=== PATIENT | male | born 1960 | race Caucasian/White ===

== ENCOUNTER 2021-01-25 11:30 | Emergency (ER) | payer OTHER, SELFPAY ==
[2021-01-25 11:44] VITALS: BP 123/99; PULSE 162; RESP 18; TEMP 36.5; O2SAT 96
--- NOTE | 2021-01-25 12:09 | ED.URI ---
HPI - URI/Sore Throat General Chief Complaint: Upper Respiratory Infection Stated Complaint: Asthma Source: patient and RN notes reviewed Limitations: no limitations History of Present Illness HPI Narrative: The vaccinated patient, ex-smoker/nondrinker , presents with cough. Patient states he is on COPD meds, and has run out of them-he would like a refill including possibly new nebulizer med [girlfriend has access to one]. He has half week history of clear cough, mild SOB responsive to his previous meds. Patient states his last dose of steroids was about a year ago; not hospitalized frequently. No fever, earache; no loss of taste/smell, vomiting/diarrhea, CP. Vital signs remarkable for BP 123/99; repeat pulse 104. The patient has been informed that they may have pre-hypertension or Hypertension based on a BP reading in the department. I recommend that the patient call the primary care provider listed on their discharge instructions or a physician of their choice this week to arrange follow up for further evaluation of possible pre-hypertension or Hypertension Related Data Home Medications Medication Instructions Recorded Confirmed albuterol 90 mcg INHALATION PRN PRN 01/25/21 01/25/21 beclomethasone dipropionate 42 mcg INTRANASAL USEASDIRECTD 01/25/21 01/25/21 [Beconase] budesonide-formoterol [Symbicort] 1 puff INHALATION BID 01/25/21 01/25/21 Allergies Allergy/AdvReac Type Severity Reaction Status Date / Time NKDA Allergy Mild Other Uncoded 01/25/21 11:37 Review of Systems Review of Systems: General/Constitutional: No weight loss,fever Eyes: N0: Redness,discharge Ears/Nose/Throat: No: Epistaxis,ear discharge Respiratory: Denies: Hemoptysis Gastrointestinal: No Vomiting, Bleeding-rectal Skin: No Lumps, eruption Neurologic: No Focal Weakness,Sz Hematologic: Denies: Petechiae/Purpura Psychiatric: No: Suicida ideationl All Other Systems: Reviewed and Negative PMFSH Comments At time of signature, agree with nursing past medical, surgical, social and family history. There is no relevant family history pertinent to the presenting complaint Exam Narrative: General Appearance: Well appearing, No distress EYE: PERRLA, Conjunctiva clear Ears: External ear normal Nose: Normal nose Mouth/Throat: Normal appearing, Normal lips Neck: Supple Respiratory: Airway patent, No respiratory distress, increased AP diameter, decreased BS at bases, fine wheezing on expiration Cardiovascular: RRR Abdomen: Soft, Non-tender, Musculoskeletal: Full ROM Skin: Warm, Dry Neurological: A&O x3, CN II-X intact Psychiatric: Normal mood, Normal affect Course Vital Signs Vital signs: Vital Signs Temperature 97.7 F 01/25/21 11:44 Pulse Rate 162 H 01/25/21 11:44 Respiratory Rate 18 01/25/21 11:44 Blood Pressure 123/99 H 01/25/21 11:44 Pulse Oximetry 96 01/25/21 11:44 Temperature 97.7 F 01/25/21 11:44 Pulse Rate 162 H 01/25/21 11:44 Respiratory Rate 18 01/25/21 11:44 Blood Pressure 123/99 H 01/25/21 11:44 Pulse Oximetry 96 01/25/21 11:44 Discharge Plan Discharge Clinical Impression: COPD exacerbation Patient Disposition: Home, Self-Care Condition: Stable Instructions: COPD (Chronic Obstructive Pulmonary Disease) (ED) Prescriptions: New prednisone 20 mg tablet 60 mg PO DAILY Qty: 30 RF: 0 budesonide-formoterol [Symbicort] 160-4.5 mcg/actuation HFA aerosol inhaler 1 puff inhalation BID Qty: 10.2 RF: 2 cefuroxime axetil 500 mg tablet 500 mg PO Q12H Qty: 14 RF: 0 albuterol sulfate 2.5 mg /3 mL (0.083 %) solution for nebulization 2.5 mg inhalation Q3-4H PRN (Reason: bronchospasm) Qty: 15 RF: 4 No Action Beconase 42 mcg/actuation Aerosol 42 mcg INTRANASAL USEASDIRECTD RF: 0 albuterol 90 mcg/actuation Aerosol 90 mcg INHALATION PRN PRN (Reason: Shortness Of Breath) RF: 0 budesonide-formoterol [Symbicort] 160-4.5 mcg/actuation H
[2021-01-26 19:19] LABS: SARS-CoV-2 RNA PCR Negative
== END 2021-01-25 12:23 | disposition home or self-care (01) ==
PROVIDERS: Emergency Provider Emergency Medicine
DX: J44.1 Chronic obstructive pulmonary disease with (acute) exacerbation (principal); Z20.822 Contact with and (suspected) exposure to COVID-19
CPT/HCPCS: 99213; C9803; G0463; U0003; U0005

== ENCOUNTER 2021-03-17 17:00 | Emergency (ER) | payer OTHER, SELFPAY ==
--- NOTE | ~2021-03-17 | XR_ITS ---
EXAMINATION: XR chest 2V DATE: 03/17/2021 17:23 INDICATION: Wheezing and cough. TECHNIQUE: Frontal and lateral views of the chest were obtained. COMPARISON: None. FINDINGS: There is eventration of anterior right hemidiaphragm. No pneumonia, pleural effusion, or pn eumothorax. The heart size is normal. There is mild anterior wedging of 2 midthoracic vertebral eve s, likely chronic. IMPRESSION: 1. No acute cardiopulmonary disease. Reviewed, dictated and finalized at location A. DEVELOPER PROGRAMMER
[2021-03-17 17:03] VITALS: BP 158/99; PULSE 109; RESP 20; TEMP 36.9; O2SAT 97
--- NOTE | 2021-03-17 17:17 | ED.URI ---
HPI - URI/Sore Throat General Chief Complaint: Upper Respiratory Infection Stated Complaint: WANTS MEDICINE REFILL Source: patient Mode of arrival: ambulatory Limitations: no limitations History of Present Illness HPI Narrative: 60-year-old male presents to [facility] with complaints of shortness of breath, wheezing cough, runny nose and congestion for the past week. Patient has history of COPD and uses inhalers and nebulizers daily. Patient's last neb treatment was a few hours ago. Patient was seen here in late January 2021 and given 30 tablets of 20 mg prednisone, antibiotic and inhalers. Patient reports that he has yet to follow-up with the [facility] and not seeing pulmonology concerning his COPD. Patient is here today asking for refill on his prednisone. Patient is a ex-smoker. Patient denies fever, body aches or chills. MD elicited complaint: cough, rhinorrhea and nasal congestion Onset (ago): week(s) (1) Description of mucous: clear Exacerbating factors: nothing Relieving factors: nothing Related Data Home Medications Medication Instructions Recorded Confirmed albuterol 90 mcg INHALATION PRN PRN 01/25/21 01/25/21 beclomethasone dipropionate 42 mcg INTRANASAL USEASDIRECTD 01/25/21 01/25/21 [Beconase] budesonide-formoterol [Symbicort] 1 puff INHALATION BID 01/25/21 01/25/21 Allergies Allergy/AdvReac Type Severity Reaction Status Date / Time NKDA Allergy Mild Other Uncoded 01/25/21 11:37 Review of Systems Constitutional: Constitutional: Denies chills, Denies fatigue, Denies fever(s) and Denies weakness ENT: Denies dysphagia, Denies epistaxis and Denies sore throat Cardiovascular: Cardiovascular: Denies chest pain, Denies rapid heart rate and Denies slow heart rate Respiratory: Respiratory: Reports chest congestion, Reports cough, Reports dyspnea and Reports wheezing Gastrointestinal: Gastrointestinal: Denies abdominal pain, Denies diarrhea, Denies nausea and Denies vomiting Integumentary/Breasts: Skin/Breast: Denies rash PMFSH Past Medical History Medical History (Updated 03/17/21 @ 17:35 by Linda Turner APRN) COPD (chronic obstructive pulmonary disease) Social History Social History (Updated 03/17/21 @ 17:22 by Linda Turner APRN) Smoking status: Former smoker Comments At time of signature, I agree with nursing past medical, surgical, social and family history. There is no relevant family history pertinent to the presenting complaint. Exam Const: General: no acute distress and alert Nutritional Appearance: well nourished Orientation/consciousness: patient oriented x3 HENMT: Head: normal to inspection Ears: TM abnormal Mouth: Yes Normal oral and palatal mucosa present and Yes moist mucous membranes Throat: posterior oropharynx normal and uvula midline Neck: Neck: normal visual inspection Chest: Chest palpation & inspection: normal inspection of the chest Resp: Effort & Inspection: normal respiratory effort and not tachypneic Auscultation: wheezes expiratory wheezes and scattered wheezes Cardio: Rate: regular rate, not bradycardic and not tachycardic Rhythm: regular rhythm Skin: General skin exam: normal color, no jaundice and no pallor Rashes: no rashes Wounds: no wounds Neuro: General: patient oriented x3 and moves all extremities Psych: Appearance: grossly normal Mental Status: mental status grossly normal Affect: normal affect Attitude: cooperative Thought content: Yes Normal thought content present Course Course Level of Care: Express Care Visit Vital Signs Vital signs: Vital Signs Temperature 36.9 C 03/17/21 17:03 Pulse Rate 109 H 03/17/21 17:03 Respiratory Rate 20 03/17/21 17:03 Blood Pressure 158/99 H 03/17/21 17:03 Pulse Oximetry 97 03/17/21 17:03 Temperature 36.9 C 03/17/21 17:03 Pulse Rate 109 H 03/17/21 17:03 Respiratory Rate 20 03/17/21 17:03 Blood Pressure 158/99 H 03/17/21 17:03 Pulse Oximetry 97 03/17/21 17:03
== END 2021-03-17 17:46 | disposition home or self-care (01) ==
PROVIDERS: Emergency Provider Nurse Practitioner Family
DX: J44.9 Chronic obstructive pulmonary disease, unspecified (principal); Z87.891 Personal history of nicotine dependence
CPT/HCPCS: 71046; 87426; 99213; C9803; G0463

== ENCOUNTER 2023-03-31 17:23 | Observation (INO) | payer OTHER, SELFPAY ==
--- NOTE | ~2023-03-31 | XR_ITS ---
EXAMINATION: XR chest 2V DATE: 03/31/2023 18:02 INDICATION: Weakness. TECHNIQUE: Frontal and lateral views of the chest were obtained. COMPARISON: Chest 2 views 03/17/2021 FINDINGS: There is eventration of anterior right hemidiaphragm. No pneumonia, pleural effusion, or pn eumothorax. The heart size is normal. There is mild chronic height loss of multiple vertebral bodies. IMPRESSION: 1. No acute cardiopulmonary disease. Reviewed, dictated and finalized at location E. TAL FORENSICS EXAMINER
[2023-03-31 17:30] VITALS: BP 163/87; PULSE 98; RESP 20; TEMP 37.1; O2SAT 95
--- NOTE | 2023-03-31 17:35 | ECG_ITS ---
Measurements Intervals [place] Rate: 91 P: 84 ID: [id number] QRS: 68 QRSD: 100 T: 64 QT: 330 QTc: 408 Interpretive Statements SINUS RHYTHM RIGHT ATRIAL ENLARGEMENT [0.3mV P WAVE] BORDERLINE ECG NO PREVIOUS ECG AVAILABLE FOR COMPARISON Electronically Signed On 04-01-2023 12:25:53 MATE FISHING VESSEL by Raudel Martines M.D.
[2023-03-31 17:51] LABS: Basophils Percent Auto 0.6 % (0.2-1.2); Eosinophils Percent Auto 0.6 % (0-4.4); Hematocrit 38.2 % (42.0-52.0); Hemoglobin 12.9 g/dL (14.0-18.0); Lymphocytes Absolute Auto 1.02 K/mm3 (0.9-3.2); Lymphocytes Percent Auto 19.5 % (18.3-44.2); Mean Corpuscular HGB Conc 33.8 g/dl (32-36); Mean Corpuscular Hemoglobin 29.7 pg (26-34); Mean Platelet Volume 8.8 fl (7.4-10.4); Monocytes Absolute Auto 0.6 K/mm3 (0.1-0.6); Monocytes Percent Auto 10.5 % (2.6-8.5); Neutrophils Absolute Auto 3.6 K/mm3 (1.3-6.7); Neutrophils Percent Auto 68.8 % (45.5-73.1); Platelet Count Result 218 k/mm3 (150-375); Red Blood Count 4.34 M/mm3 (4.6-6.20); Red Cell Distribution Width 13.4 % (11.5-14.5); White Blood Count 5.2 K/mm3 (4.5-10.0)
[2023-03-31 18:00] LABS: Alanine Aminotransferase 19 U/L (6-50); Albumin Level 4.2 g/dL (3.5-5.1); Alkaline Phosphatase 101 U/L (38-126); Anion Gap 10 mmol/L (8-16); Aspartate Amino Transferase 28 U/L (17-59); Bilirubin,Total 0.4 mg/dL (0.2-1.3); Blood Urea Nitrogen 14 mg/dL (9-20); Carbon Dioxide 21 mmol/L (22-30); Chloride 91 mmol/L (98-107); Estimated CRCL calculation 78 ml/min; Estimated Glomerular Filt Rate > 60; Glucose 149 mg/dL (65-110); Sodium 122 mmol/L (137-145)
[2023-03-31 18:56] VITALS: BP 162/88; O2SAT 97
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
[2023-03-31 19:39] LABS: Influenza A QL RT-PCR Positive (Negative); Influenza B QL RT-PCR Negative (Negative); RSV RNA, RT-PCR Negative (Negative); SARS-CoV-2 RNA PCR Negative (Negative)
[2023-03-31 20:29] LABS: Appearance Urine Clear (Clear); Bacteria Urine None Seen /hpf; Bilirubin Urine Negative (Negative); Blood Urine 1+ (Negative); Color Urine Yellow (Yellow); Glucose Urine UA Negative (Negative); Ketones Urine Trace mg/dL (Negative); Leukocyte Esterase Ur Negative LEU/UL (Negative); Nitrate Urine Negative (Negative); Non Pathogenic Casts 0-2; Protein Urine Negative (Negative); Squamous Epithelial Cell Urine None seen /hpf (Few); Urobilinogen Urine 0.2 mg/dL (<2.0); WBC Urine 0-5 /hpf; pH Urine 6.5 (5.0-9.0)
[2023-03-31 20:29] LABS: Creatine Kinase 95 U/L (55-170); Troponin I < 0.012 ng/mL (0.000-0.034)
[2023-03-31] MEDS: SODIUM CHLORIDE 0.9% IV 1,000 ML 999 ML IV CONT ×2 (20:37→21:34)
[2023-03-31 20:38] LABS: Add Urine Microscopic? YES
[2023-03-31 20:43] LABS: Creatinine Urine 62.6 mg/dL
[2023-03-31 20:56] LABS: Sodium Urine Random 43 meq/L
--- NOTE | 2023-03-31 21:19 | PM.IMHP ---
H&P: HPI History of Present Illness Date/Time: 03/31/23 21:19 Chief Complaint: SOB Narrative: THIS IS A 62-YEAR-OLD MALE WITH PAST MEDICAL HISTORY SIGNIFICANT FOR COPD. PATIENT PRESENTS TO THE EMERGENCY ROOM DUE TO GENERALIZED MALAISE, FEVERS, CHILLS, BODY ACHES AND PAINS, POOR APPETITE HAD BEEN AT THE [facility] EARLIER TO OBTAIN REFILLS FOR HIS MEDICATIONS WAS DIAGNOSED WITH INFLUENZA COMES TO THE EMERGENCY ROOM DUE TO WORSENING OF SYMPTOMS EXAMINATION: XR chest 2V DATE: 03/31/2023 18:02 INDICATION: Weakness. TECHNIQUE: Frontal and lateral views of the chest were obtained. COMPARISON: Chest 2 views 03/17/2021 FINDINGS: There is eventration of anterior right hemidiaphragm. No pneumonia, pleural effusion, or pneumothorax. The heart size is normal. There is mild chronic height loss of multiple vertebral bodies. IMPRESSION: 1. No acute cardiopulmonary disease. Review of Systems Review of Systems: BODY ACHES AND PAINS, SHORTNESS OF BREATH Constitutional: Constitutional: Reports chills, Reports fatigue, Reports poor appetite and Reports weakness Respiratory: Respiratory: Reports cough and Reports dyspnea PMFSH Past Medical History Medical History (Updated 04/01/23 @ 02:29 by Jeremy Mckeon MD) COPD (chronic obstructive pulmonary disease) Family History Family History (Updated 03/31/23 @ 22:59 by Hayley Rogers RN) Father Anemia Alzheimer's dementia Social History Social History (Updated 03/17/21 @ 17:22 by Linda Turner APRN) Smoking status: Former smoker Alcohol intake: former Substance use: never Do You Feel Safe in your Home?: Yes Lack of Transportation: No Lack of Food: Never True Current Housing: I Have Housing Concerned About Future Housing: No Difficulty Paying Gas/Electric Bills: No Difficulty Paying for Meds: No Currently Unemployed: No Education: High School Diploma/GED Difficulty w/ Childcare or Family Care: No Spiritual care concerns: No Meds Home Medications and Allergies Home Medications Medication Instructions Recorded Confirmed Type albuterol sulfate 2.5 mg/3 mL 2.5 mg (3 mL) inhalation Q3-4H PRN 01/25/21 03/31/23 Rx (0.083 %) solution for nebulization bronchospasm #15 mL beclomethasone dipropionate 42 42 mcg intranasal USEASDIRECTD 01/25/21 03/31/23 History mcg/actuation nasal spray budesonide-formoterol HFA 160 1 puff inhalation BID 01/25/21 03/31/23 History mcg-4.5 mcg/actuation aerosol inhaler (Symbicort) aspirin 81 mg capsule 81 mg PO DAILY 03/31/23 03/31/23 History dextromethorphan-guaifenesin 10 10 ml PO Q4-6H PRN Cough 03/31/23 03/31/23 History mg-100 mg/5 mL oral liquid (Tusnel Diabetic) fluticasone 250 mcg-salmeterol 50 1 inh inhalation BID 03/31/23 03/31/23 History mcg/dose blistr powdr for inhalation fluticasone propionate 50 1 spray intranasal DAILY 03/31/23 03/31/23 History mcg/actuation nasal spray,suspension melatonin 3 mg tablet 3 mg PO HS PRN Insomnia 03/31/23 03/31/23 History sodium chloride 0.65 % nasal spray 1 spray intranasal Q4-6H PRN 03/31/23 03/31/23 History aerosol (Deep Sea Nasal) Congestion Allergies Allergy/AdvReac Type Severity Reaction Status Date / Time NKDA Allergy Mild Other Uncoded 03/31/23 23:13 Vital Signs Vital Signs - 24 hr 03/31/23 17:30 03/31/23 18:56 Temperature 98.7 F Pulse Rate 98 Respiratory Rate 20 Blood Pressure 163/87 H 162/88 H Pulse Oximetry 95 97 Oxygen Delivery Room Air Exam Narrative: PATIENT IS LAYING IN A STRETCHER Const: General: comfortable, no acute distress, well developed, alert, awake and average body habitus Nutritional Appearance: average body habitus Orientation/consciousness: patient oriented x3 HENMT: Head: normal to inspection, normocephalic and atraumatic Ears: hearing grossly normal bilaterally Face/Nose/Sinus: normal facial exam Face and sinus: normal facial exam Eyes: Ge
[2023-03-31 21:38] LABS: Magnesium 1.9 mg/dL (1.6-2.3)
[2023-03-31] MEDS: HYDROcodone/acetaminophen (*CRX) 5-325 MG TABLET 1 TAB PO (21:54)
[2023-03-31 22:05] VITALS: BP 152/87; PULSE 83; RESP 17; O2SAT 99
[2023-03-31 22:17] LABS: Anion Gap 6 mmol/L (8-16); Blood Urea Nitrogen 12 mg/dL (9-20); Calcium 7.3 mg/dL (8.4-10.2); Carbon Dioxide 24 mmol/L (22-30); Chloride 95 mmol/L (98-107); Creatine Kinase 98 U/L (55-170); Estimated CRCL calculation 88 ml/min; Estimated Glomerular Filt Rate > 60; Glucose 100 mg/dL (65-110); Potassium 3.7 mmol/L (3.4-5.0); Sodium 125 mmol/L (137-145)
[2023-03-31] MEDS: PHARMACIST COMMUNICATION ORDER 1 EACH XX (22:24)
[2023-03-31] MEDS: SODIUM CHLORIDE 3% 100 ML IV CONT (22:29)
--- NOTE | 2023-03-31 22:57 | ADMGEN ---
This patient, Rui Estrada, was admitted to Medical Room 349-01. Patient/family oriented to hospital policies and general routines including ID bracelet, bed and alarms, visiting hours, pain management, procedures, bathroom and other care routines, personal items, smoking policy, room service/diet, and visiting hours. Information on how to activate the Rapid Response Team has been discussed. Patient/Family are encouraged to report perceived risks to care and to ask questions if they do not understand what they are told or what they should do.
[2023-03-31 23:40] VITALS: BP 151/63; PULSE 71; RESP 18; TEMP 36.6; O2SAT 96
[2023-03-31 23:43] VITALS: BMI 21.1
[2023-04-01 00:42] LABS: Anion Gap 4 mmol/L (8-16); Blood Urea Nitrogen 10 mg/dL (9-20); Calcium 7.6 mg/dL (8.4-10.2); Carbon Dioxide 25 mmol/L (22-30); Chloride 99 mmol/L (98-107); Estimated CRCL calculation 92 ml/min; Estimated Glomerular Filt Rate > 60; Glucose 107 mg/dL (65-110); Potassium 4.1 mmol/L (3.4-5.0); Sodium 128 mmol/L (137-145)
[2023-04-01 06:00] VITALS: BP 130/89; PULSE 90; RESP 18; TEMP 37.2; O2SAT 95
[2023-04-01 07:51] VITALS: O2SAT 94
[2023-04-01] MEDS: FLUTICASONE/SALMETEROL 115-21 MCG INHALER 1 PUFF 2 PUFF INHALATION (07:51)
[2023-04-01] MEDS: ASPIRIN 81 MG ENTERIC TABLET PO (09:36)
[2023-04-01] MEDS: FLUTICASONE PROPIONATE 0.05% NA SPR 16 GM BTL (*BKC) 2 SPRAY NASAL (09:36)
[2023-04-01 14:00] VITALS: BP 135/81; PULSE 78; RESP 16; TEMP 36.6; O2SAT 95
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
[2023-04-01] MEDS: OSELTAMIVIR PHOSPHATE 75 MG CAPSULE PO (15:48)
[2023-04-03 19:41] LABS: Osmolality, Urine 322 mOsm/kg (50-1200)
== END 2023-04-01 17:10 | disposition left against medical advice (07) ==
LOC: ANHED 19:39 → ANH3MED 04-01 11:07
PROVIDERS: Emergency Medicine; Admitting Provider Internal Medicine; Emergency Provider Student in an Organized Health Care Education/Training Program; Visit Provider Internal Medicine
DX: J10.1 Influenza due to other identified influenza virus with other respiratory manifestations (principal); D64.9 Anemia, unspecified; E87.1 Hypo-osmolality and hyponatremia; R73.9 Hyperglycemia, unspecified; Z53.29 Procedure and treatment not carried out because of patient's decision for other reasons; Z20.822 Contact with and (suspected) exposure to COVID-19; J44.9 Chronic obstructive pulmonary disease, unspecified; Z87.891 Personal history of nicotine dependence; Z79.51 Long term (current) use of inhaled steroids; Z79.52 Long term (current) use of systemic steroids; Z79.82 Long term (current) use of aspirin; Z79.899 Other long term (current) drug therapy
CPT/HCPCS: 36415; 71046; 80048; 80053; 81001; 82550; 82570; 83735; 83930; 83935; 84300; 84484; 85025; 87637; 93005; 94640; 96360; 96361; 99285; A9270; G0378; J7030; J7131

== ENCOUNTER 2023-04-03 22:08 | Inpatient (IN) | payer OTHER, SELFPAY ==
--- NOTE | ~2023-04-03 | CT_ITS ---
CT of the Abdomen and Pelvis: Indication: Back pain Technique: 2.5 mm axial scans were obtained through the abdomen and pelvis following intravenous adm inistration of 100 cc of Omnipaque 350. Dose reduction technique was used on this scan by utilizing a utomated exposure control and iterative reconstruction technique. The dose-length product (DLP) was 2 35.43 mGy-cm. Findings: Scans through the lung bases demonstrate probable patchy mild tree-in-bud opacities the jeffry ng bases. The liver, spleen, pancreas, gallbladder, adrenals and kidneys are within normal limits. There are at herosclerotic calcifications/changes of the aorta. No lymphadenopathy. No bowel obstruction or bowel wall thickening. There is no evidence to suggest acute appendicitis. Images through the pelvis were performed. Urinary bladder unremarkable. No pelvic mass seen. No ascit es. Impression: Probable acute versus acute on chronic small airways infectious process at the lung bases, possibly M AI. Reviewed, dictated and finalized at location M. TRIMMER UPHOLSTERER Impression: Probable acute versus acute on chronic small airways infectious process at the lung bases, possibly GABRIELA.
--- NOTE | ~2023-04-03 | CT_ITS ---
EXAMINATION: CT brain wo con DATE: 04/06/2023 09:21 INDICATION: Hyponatremia. TECHNIQUE: Computed tomography (CT) of the head was performed without intravenous contrast. The mA wa s adjusted according to patient size. Iterative reconstruction technique was employed. The dose-lengt h product was 605.33 mGy-cm. COMPARISON: None FINDINGS: There is no intracranial hemorrhage, acute infarction, or abnormal intracranial mass lesion . The ventricles are normal in size. The orbits are normal. There is mucosal thickening in the parana sinuses with thickening and sclerosis of the sinus enriquez, consistent with chronic sinusitis. Ther e are changes of uncinectomies and ethmoidectomies. There is a small right mastoid effusion. IMPRESSION: 1. Normal brain. 2. Chronic sinusitis. Reviewed, dictated and finalized at location A. S MECHANIC
[2023-04-03 22:13] VITALS: BP 160/95; PULSE 97; RESP 20; TEMP 36.3; O2SAT 97
[2023-04-03 22:24] LABS: Basophils Percent Auto 0.4 % (0.2-1.2); Eosinophils Absolute Auto 0.1 K/mm3 (0-0.3); Eosinophils Percent Auto 1.7 % (0-4.4); Hematocrit 38.1 % (42.0-52.0); Hemoglobin 12.9 g/dL (14.0-18.0); Immature Granulocyte Absolute 0.02 K/mm3 (0.00-0.031); Immature Granulocyte Percent A 0.2 % (0-0.5); Lymphocytes Absolute Auto 2.51 K/mm3 (0.9-3.2); Lymphocytes Percent Auto 30.2 % (18.3-44.2); Mean Corpuscular HGB Conc 33.9 g/dl (32-36); Mean Corpuscular Hemoglobin 29.7 pg (26-34); Mean Corpuscular Volume 87.6 fl (80-100); Mean Platelet Volume 8.7 fl (7.4-10.4); Monocytes Absolute Auto 0.8 K/mm3 (0.1-0.6); Monocytes Percent Auto 9.4 % (2.6-8.5); Neutrophils Absolute Auto 4.8 K/mm3 (1.3-6.7); Neutrophils Percent Auto 58.1 % (45.5-73.1); Platelet Count Result 226 k/mm3 (150-375); Red Blood Count 4.35 M/mm3 (4.6-6.20); Red Cell Distribution Width 13.2 % (11.5-14.5); White Blood Count 8.3 K/mm3 (4.5-10.0)
[2023-04-03 22:40] LABS: Appearance Urine Clear (Clear); Bacteria Urine None Seen /hpf; Bilirubin Urine Negative (Negative); Blood Urine Trace (Negative); Color Urine Yellow (Yellow); Glucose Urine UA Negative (Negative); Ketones Urine Negative (Negative); Leukocyte Esterase Ur Negative LEU/UL (Negative); Nitrate Urine Negative (Negative); Non Pathogenic Casts 0-2; Protein Urine Negative (Negative); RBC Urine 0-2 /hpf (0-2); Specific Grav Ur 1.004 (1.001-1.035); Squamous Epithelial Cell Urine None seen /hpf (Few); Urobilinogen Urine 0.2 mg/dL (<2.0); WBC Urine 0-5 /hpf; pH Urine 6.5 (5.0-9.0)
[2023-04-03 22:41] LABS: Add Urine Microscopic? YES
[2023-04-03 22:48] LABS: Alanine Aminotransferase 22 U/L (6-50); Albumin Level 4.1 g/dL (3.5-5.1); Alkaline Phosphatase 102 U/L (38-126); Anion Gap 7 mmol/L (8-16); Aspartate Amino Transferase 33 U/L (17-59); Bilirubin,Total 0.4 mg/dL (0.2-1.3); Blood Urea Nitrogen 4 mg/dL (9-20); Calcium 7.8 mg/dL (8.4-10.2); Carbon Dioxide 26 mmol/L (22-30); Chloride 86 mmol/L (98-107); Estimated CRCL calculation 98 ml/min; Estimated Glomerular Filt Rate > 60; Glucose 104 mg/dL (65-110); Lipase 68 U/L (23-300); Potassium 3.9 mmol/L (3.4-5.0); Sodium 119 mmol/L (137-145)
[2023-04-03 22:53] VITALS: BP 156/86; PULSE 79; RESP 18; O2SAT 99
[2023-04-03 23:01] VITALS: BP 148/92; PULSE 79; RESP 14; O2SAT 96
[2023-04-03 23:16] VITALS: BP 132/88; PULSE 78; RESP 19; O2SAT 95
[2023-04-03 23:31] VITALS: BP 163/89; PULSE 76; RESP 13; O2SAT 97
[2023-04-03 23:46] VITALS: BP 176/97; PULSE 89; RESP 15; O2SAT 97
[2023-04-04] VITALS (31 sets, daily range): BP systolic 103–169; BP diastolic 72–102; PULSE 68–97; RESP 12–22; TEMP 36.7–37.1; O2SAT 90–98; BMI 19.6
[2023-04-04 00:32] LABS: Amphetamine Screen Urine Negative (Negative); Barbiturate Screen Urine Negative (Negative); Benzodiazepines Screen Urine Negative (Negative); Cannabinoid Screen Urine Positive (Negative); Cocaine Screen Urine Negative (Negative); Methadone Screen Urine Negative (Negative); Opiate Screen Urine Negative (Negative); Phencyclidine Screen Urine Negative (Negative)
--- NOTE | 2023-04-04 01:41 | ED.GENADULT ---
HPI - General Adult General Chief complaint: Abdominal Pain Stated complaint: i think my kidneys are going bad , bi-lat flank Time Seen by Provider: 04/03/23 23:58 History of Present Illness HPI narrative: This is a 62-year-old male returning to the hospital with bilateral flank pain. Patient was admitted yesterday for hyponatremia. Then left hospital AMA. Patient says he is still having his bilateral flank pain. I informed patient not be giving him any opiates and he says he doesnt want any. Patient states he left the hospital AMA yesterday because he panicked. Now he is still complaining of confusion/ racing thoughts. Patient admits to psychiatric illness although he doesn't know which one. Patient notes that he has been drinking large amount of water and try to get his kidneys working again. Patient denies nausea, vomiting, headache, loss of energy. Admits to cannabis use. Related Data Home Medications Medication Instructions Recorded Confirmed beclomethasone dipropionate 42 42 mcg intranasal USEASDIRECTD 01/25/21 03/31/23 mcg/actuation nasal spray budesonide-formoterol HFA 160 1 puff inhalation BID 01/25/21 03/31/23 mcg-4.5 mcg/actuation aerosol inhaler (Symbicort) aspirin 81 mg capsule 81 mg PO DAILY 03/31/23 03/31/23 dextromethorphan-guaifenesin 10 10 ml PO Q4-6H PRN Cough 03/31/23 03/31/23 mg-100 mg/5 mL oral liquid (Tusnel Diabetic) fluticasone 250 mcg-salmeterol 50 1 inh inhalation BID 03/31/23 03/31/23 mcg/dose blistr powdr for inhalation fluticasone propionate 50 1 spray intranasal DAILY 03/31/23 03/31/23 mcg/actuation nasal spray,suspension melatonin 3 mg tablet 3 mg PO HS PRN Insomnia 03/31/23 03/31/23 sodium chloride 0.65 % nasal spray 1 spray intranasal Q4-6H PRN 03/31/23 03/31/23 aerosol (Deep Sea Nasal) Congestion Allergies Allergy/AdvReac Type Severity Reaction Status Date / Time NKDA Allergy Mild Other Uncoded 04/03/23 22:20 [facility] Past Medical History Medical History COPD (chronic obstructive pulmonary disease) Family History Family History Father Anemia Alzheimer's dementia Social History Social History Smoking status: Former smoker Additional smoking assessment comments: quit 2021 Alcohol intake: former Alcohol use details: Quit 2013 Substance use: never Do You Feel Safe in your Home?: Yes Lack of Transportation: No Lack of Food: Never True Current Housing: I Have Housing Concerned About Future Housing: No Difficulty Paying Gas/Electric Bills: No Difficulty Paying for Meds: No Currently Unemployed: No Education: High School Diploma/GED Difficulty w/ Childcare or Family Care: No Living arrangements: with roommate(s) Additional living arrangements comments: rents; animals in the home/patient has concerns about cleanliness Additional occupation/education comments: [place] Spiritual care concerns: No Exam Narrative: APPEARANCE: Patient is disheveled, A&O x4 Head: atraumatic. EYES: EOMI, NOSE: Atraumatic NECK: Trachea midline RESPIRATORY: No increased rate of breathing CTAB CARDIOVASCULAR: RRR, ABDOMINAL: Non-distended, soft no guarding rebound MUSCULOSKELETAl: patient has diffuse tenderness over his back, no specific tenderness in the CVA area NEURO: Alert. Moving 4/4 extremities SKIN:: Warm, dry. Normal color PSYCHIATRIC: Normal affect Course Vital Signs Vital signs: Vital Signs Temperature 97.3 F L 04/03/23 22:13 Pulse Rate 97 04/03/23 22:13 Respiratory Rate 20 04/03/23 22:13 Blood Pressure 160/95 H 04/03/23 22:13 Pulse Oximetry 97 04/03/23 22:13 Oxygen Delivery Room Air 04/03/23 22:13 Temperature 97.3 F L 04/03/23 22:13 Pulse Rate 89 04/03/23 23:46 Respiratory Rate 15 04/03/23 23:46 Blood P
--- NOTE | 2023-04-04 01:56 | ECG_ITS ---
Measurements Intervals [place] Rate: 84 P: 77 [place]: 199 QRS: 64 QRSD: 90 T: 66 QT: 376 QTc: 445 Interpretive Statements SINUS RHYTHM POSSIBLE RIGHT ATRIAL ENLARGEMENT [0.25mV P-WAVE] POSSIBLE LEFT ATRIAL ENLARGEMENT [-0.1mV P-WAVE IN V1/V2] BORDERLINE ECG COMPARED TO ECG 03/31/2023 17:41:34 NO SIGNIFICANT CHANGES Electronically Signed On 04-04-2023 7:29:33 [facility] by Raudel Martines M.D.
--- NOTE | 2023-04-04 05:33 | ADMIMU ---
This patient, Rui Estrada, was admitted to IMU status, and placed in Intensive Care Unit-4. Patient/family oriented to hospital policies and general routines including ID bracelet, bed and alarms, visiting hours, pain management, procedures, bathroom and other care routines, personal items, smoking policy, room service/diet, and visiting hours. Valuables list has been completed. Information on how to activate the Rapid Response Team has been discussed. Patient/Family are encouraged to report perceived risks to care and to ask questions if they do not understand what they are told or what they should do.
[2023-04-04] MEDS: SODIUM CHLORIDE 3% 100 ML 30 ML IV CONT (05:41)
--- NOTE | 2023-04-04 10:35 | PM.CNNEP ---
Assessment and Plan Assessment and plan (1) Hyponatremia: Code(s): E87.1 - Hypo-osmolality and hyponatremia Status: Acute Assessment and Plan: clear evidence of overcorrection: sodium on admission 119mmol/L sodium 12 hours later 129mmol/L received 3% saline on admission reportedly due to confusion will give D5W IVFs and DDAVP to acutely lower sodium level unclear what baseline sodium is...was 128mmol on 04/01/23 prior to him leaving AMA (but did receive normal saline and 3% saline with an admission sodium of 122) will check TSH, cortisol level, serum/urine osmolality, SPEP and UPEP follow trend of repeat sodium levels I will continue follow the patient with you while he remains hospitalized and make further recommendations as needed. Thank you for allowing me to participate in the care of this patient. History of Present Illness Reason for Consult Consult date: 04/04/23 Reason for consult: hyponatremia Chief Complaint Chief complaint: Hyponatremia History of Present Illness Narrative: Most of the information that I have obtained is from review of the electronic medical record as well as discussion with the physician / nurses involved in the patient's care as is difficult to get a clear and concise history from the patient at this time. The patient is a 62-year-old male with a past medical history as outlined below who presented back to [facility] Emergency Room after ongoing complaints of bilateral flank pain. The patient actually presented to [facility] several days prior to this ER visit with the same complaint. Evaluation of the time was only significant for hyponatremia with a sodium level of 122. He received IV fluids and I believe 3% saline with improvement in his sodium level to 128. However, the patient then left AMA. He returned to the ER yesterday with the same complaints. Subsequent workup and evaluation once again demonstrated hyponatremia that was actually worse than when he was discharged at a level of 119 millimoles per L. On further questioning, because he was concerned that he was having kidney issues/ problems, he was aggressively drinking fluid for the past few days. Other associated symptoms included on and off shortness of breath as well as feeling weak, tired, and fatigued. It was felt that perhaps his symptoms related to his low sodium level so he was once again admitted and given 3% saline and admitted to the hospital for further evaluation and therapy. Unfortunately, with the use of 3% saline overnight, the patient's sodium level over corrected to 129 millimoles per L in about 12 hours. In spite of this change in his sodium level, no other neurological sequelae or complaints were voiced by the patient at this time. Renal consultation was requested due to his hyponatremia. Unfortunately, I have no previous labs to compare to with regard to his baseline sodium level. However, on questioning the patient, he does not recall ever being told that he had any issues or problems with hyponatremia or low sodium levels up until these recent visits to [facility]. It is suspected that his more recent hyponatremia is secondary to excessive free water/fluid intake in the last few days when he left the hospital against medical advise since his sodium level was around 128 millimoles per L at that time he does not appear to be on any type of medications that would cause this issue with regard to thiazide diuretics, SSRIs, antiepileptics, pain medication/ narcotics, or proton pump inhibitors. It is difficult to gauge if he is a excessive water drinker at baseline from my discussion with him but he is known to have some psychiatric issues so the possibility of polydipsia does exist. Other risk factors include his known reported history of COPD and lung disease. Given his over correction in his sodium level, D5W IV fluids as well as DDAVP have been ordered with a repeat sod
[2023-04-04 10:36] LABS: Sodium 129 mmol/L (137-145)
[2023-04-04] MEDS: DEXTROSE 5% IN WATER 500 ML 250 ML IV CONT (12:17)
[2023-04-04] MEDS: DESMOPRESSIN ACETATE 4 MCG/ML AMP 1 MCG SUB-Q (12:18)
[2023-04-04] MEDS: LIDOCAINE 5% PATCH 1 PATCH TRANSDERM (12:30)
--- NOTE | 2023-04-04 15:07 | PM.IMHP ---
H&P: HPI History of Present Illness Date/Time: 04/04/23 15:07 Chief Complaint: Patient came back for evaluation of bilateral flank pain Narrative: He is an unfortunate male with an unknown psychiatric illness as per the patient, who was admitted to our hospital 3 days ago with hyponatremia. He received treatment and left against medical advice. He came back again complaining to the ER physician ?I think my kidneys are going bad . He admits to drinking a lot of water since leaving AMA from the hospital. He was complaining of bilateral flank pains, as well as feeling weak tired and fatigued. Workup was done which showed worsening hypernatremia at 119. No evidence of renal stones on CT scan abdomen. Patient was given 100 mL of 3% normal saline and was admitted in IMU for close follow-up and evaluation by Nephrology. His follow-up sodium level today is 129. He is being admitted for close follow-up and management as per Nephrology. Review of Systems Review of Systems: 14 systems were reviewed with pertinent positives and negatives per HPI. Except as documented in the HPI/progress notes, all other systems were reviewed and are negative. All systems reviewed & are unremarkable except as noted in HPI and below PMFSH Past Medical History Medical History COPD (chronic obstructive pulmonary disease) Family History Family History Father Anemia Alzheimer's dementia Social History Social History Smoking status: Former smoker Tobacco type: cigarettes Second hand tobacco smoke exposure: No Additional smoking assessment comments: quit 2021 Alcohol intake: never Alcohol use details: Quit 2013 Substance use: current Substance use type: marijuana Do You Feel Safe in your Home?: Yes Lack of Transportation: No Lack of Food: Never True Current Housing: I Have Housing Concerned About Future Housing: No Difficulty Paying Gas/Electric Bills: No Difficulty Paying for Meds: No Currently Unemployed: No Education: High School Diploma/GED Difficulty w/ Childcare or Family Care: No Living arrangements: with roommate(s) Additional living arrangements comments: rents; animals in the home/patient has concerns about cleanliness Additional occupation/education comments: [place] Spiritual care concerns: No Meds Home Medications and Allergies Home Medications Medication Instructions Recorded Confirmed Type albuterol sulfate 2.5 mg/3 mL 2.5 mg (3 mL) inhalation Q3-4H PRN 01/25/21 04/04/23 Rx (0.083 %) solution for nebulization bronchospasm #15 mL beclomethasone dipropionate 42 42 mcg intranasal USEASDIRECTD 01/25/21 04/04/23 History mcg/actuation nasal spray budesonide-formoterol HFA 160 1 puff inhalation BID 01/25/21 04/04/23 History mcg-4.5 mcg/actuation aerosol inhaler (Symbicort) aspirin 81 mg capsule 81 mg PO DAILY 03/31/23 04/04/23 History dextromethorphan-guaifenesin 10 10 ml PO Q4-6H PRN Cough 03/31/23 04/04/23 History mg-100 mg/5 mL oral liquid (Tusnel Diabetic) fluticasone 250 mcg-salmeterol 50 1 inh inhalation BID 03/31/23 04/04/23 History mcg/dose blistr powdr for inhalation fluticasone propionate 50 1 spray intranasal DAILY 03/31/23 04/04/23 History mcg/actuation nasal spray,suspension melatonin 3 mg tablet 3 mg PO HS PRN Insomnia 03/31/23 04/04/23 History sodium chloride 0.65 % nasal spray 1 spray intranasal Q4-6H PRN 03/31/23 04/04/23 History aerosol (Deep Sea Nasal) Congestion Allergies Allergy/AdvReac Type Severity Reaction Status Date / Time NKDA Allergy Mild Other Uncoded 04/03/23 22:20 Vital Signs Vital Signs - 24 hr 04/03/23 22:13 04/03/23 22:53 04/03/23 23:01 Temperature 36.3 C L Pulse Rate 97 79 79 Respiratory Rate 20 18 14 Blood Pressure 160/95 H 156/86 H 148/92 H Puls
[2023-04-04 15:49] LABS: Sodium 126 mmol/L (137-145)
[2023-04-04] MEDS: ALBUTEROL SULFATE NEB 2.5 MG/3 ML INH INHALATION (16:40)
[2023-04-04] MEDS: OSELTAMIVIR PHOSPHATE 75 MG CAPSULE PO (19:56)
[2023-04-04] MEDS: MELATONIN 3 MG TABLET PO (20:01)
[2023-04-04] MEDS: ACETAMINOPHEN 325 MG TABLET 650 MG PO (20:01)
[2023-04-04 20:06] LABS: Sodium 123 mmol/L (137-145)
[2023-04-04] MEDS: FLUTICASONE/SALMETEROL 115-21 MCG INHALER 1 PUFF 2 PUFF INHALATION (20:25)
--- NOTE | 2023-04-04 20:26 | PC.NURSE ---
1943 Sodium called to MD Rendon. Orders received.
[2023-04-04 23:11] LABS: Sodium 122 mmol/L (137-145)
[2023-04-05] VITALS (11 sets, daily range): BP systolic 113–159; BP diastolic 78–95; PULSE 66–95; RESP 17–26; TEMP 36.6–37.2; O2SAT 94–98
[2023-04-05] MEDS: ACETAMINOPHEN 325 MG TABLET 650 MG PO ×2 (03:44→20:41)
[2023-04-05 03:59] LABS: Total Protein Urine Random 16 mg/dL; Ur Ttl Prot Creatinine Ratio 0.12 mg/mg (0-0.20); Urea Random Urine 978 MG/DL
[2023-04-05 04:00] LABS: Basophils Percent Auto 0.5 % (0.2-1.2); Eosinophils Absolute Auto 0.1 K/mm3 (0-0.3); Eosinophils Percent Auto 1.6 % (0-4.4); Hematocrit 39.3 % (42.0-52.0); Hemoglobin 13.2 g/dL (14.0-18.0); Immature Granulocyte Absolute 0.03 K/mm3 (0.00-0.031); Immature Granulocyte Percent A 0.4 % (0-0.5); Lymphocytes Absolute Auto 2.15 K/mm3 (0.9-3.2); Lymphocytes Percent Auto 25.8 % (18.3-44.2); Mean Corpuscular HGB Conc 33.6 g/dl (32-36); Mean Corpuscular Hemoglobin 29.6 pg (26-34); Mean Corpuscular Volume 88.1 fl (80-100); Mean Platelet Volume 8.8 fl (7.4-10.4); Monocytes Absolute Auto 0.8 K/mm3 (0.1-0.6); Monocytes Percent Auto 9.6 % (2.6-8.5); Neutrophils Absolute Auto 5.2 K/mm3 (1.3-6.7); Neutrophils Percent Auto 62.1 % (45.5-73.1); Platelet Count Result 271 k/mm3 (150-375); Red Blood Count 4.46 M/mm3 (4.6-6.20); Red Cell Distribution Width 13.4 % (11.5-14.5); White Blood Count 8.3 K/mm3 (4.5-10.0)
[2023-04-05 04:02] LABS: Sodium Urine Random 114 meq/L
[2023-04-05 04:25] LABS: Anion Gap 8 mmol/L (8-16); Blood Urea Nitrogen 12 mg/dL (9-20); Calcium 8.3 mg/dL (8.4-10.2); Carbon Dioxide 26 mmol/L (22-30); Chloride 91 mmol/L (98-107); Estimated CRCL calculation 76 ml/min; Estimated Glomerular Filt Rate > 60; Glucose 106 mg/dL (65-110); Magnesium 2.1 mg/dL (1.6-2.3); Phosphorus 2.8 mg/dL (2.5-4.5); Potassium 4.1 mmol/L (3.4-5.0); Sodium 125 mmol/L (137-145)
[2023-04-05 06:53] LABS: Free T4 Free Thyroxine Reflex 1.25 ng/dL (0.78-2.19)
[2023-04-05 07:39] LABS: Total Triiodothyronine (T3) 1.46 NG/ML (0.97-1.69)
[2023-04-05] MEDS: OSELTAMIVIR PHOSPHATE 75 MG CAPSULE PO ×2 (08:25→20:40)
[2023-04-05] MEDS: FLUTICASONE PROPIONATE 0.05% NA SPR 16 GM BTL (*BKC) 1 SPRAY NASAL (08:25)
[2023-04-05] MEDS: ENOXAPARIN 40 MG/0.4 ML SYRINGE SUB-Q (08:25)
[2023-04-05] MEDS: ASPIRIN 81 MG CHEWABLE TABLET PO (08:30)
[2023-04-05] MEDS: FLUTICASONE/SALMETEROL 115-21 MCG INHALER 1 PUFF 2 PUFF INHALATION ×2 (09:36→20:07)
--- NOTE | 2023-04-05 10:35 | PM.PNNEP ---
Progress Note: A&P Assessment and Plan (1) Hyponatremia: Code(s): E87.1 - Hypo-osmolality and hyponatremia Status: Acute Assessment and Plan: overcorrection noted on admission: sodium on admission 119mmol/L sodium 12 hours later 129mmol/L received 3% saline on admission reportedly due to confusion s/p D5W IVFs and DDAVP which resolved overcorrection unclear what baseline sodium is...was 128mmol on 04/01/23 prior to him leaving AMA (but did receive normal saline and 3% saline with an admission sodium of 122) evaluation to date: TSH elevated but FT4 and T3 okay cortisol pending SPEP/UPEP and serum/urine osmo pending CT of chest with acute versus acute on chronic small airways infectious process suspicion falls on excessive free water intake as etiology given unclear psych history, outpatient use of SSRI therapy is also possible attempt get records [facility] regarding previous sodium levels... continue fluid restriction check head CT follow trend of repeat sodium levels Will continue to follow. Subjective Date/time seen: 04/05/23 10:35 Interval history: Follow-up for hyponatremia (acute versus chronic versus acute on chronic?) Overcorrection of sodium resolved with use of D5W IVFs and DDAVP; sodium has been relatively stable at this time with slow improvement; no apparent issues voiced at this time; instituted on fluid restriction at this time; no other issues/events overnight or earlier this AM. Exam Narrative: General: WD/WN male in NAD Heart: normal S1 and S2; no rub Lungs: clear to auscultation Abdomen: soft, nontender, nondistended, positive bowel sounds Extremities: no cyanosis or clubbing; no edema Skin: warm and dry Objective Data Vital Signs Vital Signs: Vital Signs Temp Pulse Resp BP Pulse Ox O2 Del Method 04/05/23 09:37 96 Room Air 04/05/23 04:00 98.1 F 66 19 123/84 98 04/05/23 04:00 66 04/05/23 03:53 Room Air 04/05/23 00:00 97.8 F 83 17 113/81 96 04/05/23 00:00 83 04/05/23 00:00 Room Air 04/04/23 20:00 Room Air 04/04/23 20:00 98.1 F 89 20 124/72 96 04/04/23 20:00 89 04/04/23 20:27 84 14 04/04/23 16:00 90 18 96 Room Air 04/04/23 16:00 90 04/04/23 16:45 94 12 04/04/23 16:40 93 12 04/04/23 16:00 98.8 F 78 20 138/91 H 96 04/04/23 14:00 78 04/04/23 12:00 96 20 96 Room Air 04/04/23 12:00 96 04/04/23 12:00 98.6 F 97 18 129/87 97 Intake/Output Intake/Output: Intake & Output 04/02/23 04/03/23 04/04/23 04/05/23 23:59 23:59 23:59 23:59 Intake Total 1140 550 Output Total 2750 200 Balance -1610 350 Meds/Results Medications: Active Medications Generic Name Dose Route Start Last Admin Trade Name Freq PRN Reason Stop Dose Admin Acetaminophen 650 mg 04/04/23 15:24 04/05/23 03:44 Acetaminophen 325 Mg Tablet PO 650 mg Q4H PRN Administration Mild Pain (1-3) or Fever Al Hydrox/Mg Hydrox/Simethicone 30 ml 04/04/23 15:24 Mag Hydrox/Al Hydrox/Simeth 30 Ml Udc PO QID PRN Dyspepsia Albuterol 2.5 mg 04/04/23 15:30 04/04/23 16:40 Albuterol Sulfate Neb 2.5 Mg/3 Ml Inh INHALATION 2.5 mg Q3-4H PRN Administration bronchospasm Aspirin 81 mg 04/05/23 09:00 04/05/23 08:30 Aspirin 81 Mg Chewable Tablet PO 81 mg DAILY RIZWAN Administration Enoxaparin Sodium 40 mg 04/05/23 09:00 04/05/23 08:25 Enoxaparin 40 Mg/0.4 Ml Syringe SUB-Q 40 mg DAILY RIZWAN Administration Fluticasone Propionate 1 spray 04/05/23 09:00 04/05/23 08:25 Fluticasone Propionate 0.05% Na Spr 16 Gm Btl (*Bkc) NASAL 1 spray DAILY RIZWAN Administration Guaifenesin/Dextromethorphan 10 ml 04/04/23 15:30 Guaifenesin/Dextromethorphan 10 Ml Udc PO Q4-6H PRN Cough Lidocaine 1 patch 04/04/23 12:19 04/05/23 08:24 Lidocaine 5% Patch TRANS
[2023-04-05 16:16] LABS: Sodium 124 mmol/L (137-145)
--- NOTE | 2023-04-05 18:24 | PM.IMPN ---
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; F54 - Psychological and behavioral factors associated with disorders or diseases classified elsewhere Status: Acute Plan Admit patient to IMU under full in status Continues cardiopulmonary tele monitoring Patient received 100 mL of 3% normal saline in the ER ordered as per ED physician His sodium level has improved from 119-129 since admission Patient seen by incinerator attendant today who ordered small doses of D5 W and DDAVP to avoid acute lowering of sodium with complications His sodium level stable between 122 and 126 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 b.i.d. ordered for 10 doses Strict I&Os Monitor sodium level at 10:00 p.m. tonight to be followed by Nephrology Follow-up closely with Nephrology regarding further recommendations for his hyponatremia Patient had elevated TSH at 11.5 Free T3 and free T4 levels ordered which are within normal limits Please release medical records from PCP/psychiatrist regarding his psychiatric history ? Patient seen and examined at bedside during my morning rounds ? Collaborated with patient's nurse at the bedside in detail and addressed all concerns ? Labs, electrolytes, radiology, investigations and test results reviewed ? Consult/Nursing/Ancilliary notes on the chart reviewed and appreciated ? Spoke with patient/family at the bedside and answered all the questions that they had Repeat labs in a.m. Electrolyte replacement as per protocol. Patient will be monitored very closely on the floor. Further recommendations as per the hospital course. Personal history of noncompliance with medical treatment and regimen: STRICTLY advised patient to be compliant with meds and medical recommendations. Advised patient to get established with a PCP upon discharge, take care of meds, diet and bring patient's life back on track. Spoke with care coordination to help patient's secure follow-[facility] appointment [facility] Time Spent With Patient Time with patient: 15 - 25 minutes Subjective Date/time seen: 04/05/23 18:24 Interval history: Patient is feeling better today. Sodium level is slowly improving. He admits not following with the his [facility]CP[facility] on a regular basis Review of Systems Review of Systems: 14 systems were reviewed with pertinent positives and negatives per HPI. Except as documented in the HPI/progress notes, all other systems were reviewed and are negative. All systems reviewed & are unremarkable except as noted in HPI and below Exam Narrative: PHYSICAL EXAMINATION: Vital signs: Please see the chart General physical exam: Patient lying in bed feeling weak tired and fatigued, pleasant and cooperative with exam Head/eyes: Atraumatic, EOMI, PERRLA ENT: Moist mucous membranes, nasal passages clear Neck: Supple, full range of motion, trachea midline CVS: S1 + S2, regular rate and rhythm, no murmurs Respiratory: Bilaterally fair air entry in both lung [place], mild B/L crackles, symmetric chest expansion, no distress Abdomen: Soft, non-tender, bowel sounds +ve, no organomegaly
[2023-04-05] MEDS: MELATONIN 3 MG TABLET PO (20:40)
[2023-04-05 22:58] LABS: Sodium 124 mmol/L (137-145)
[2023-04-06] VITALS (13 sets, daily range): BP systolic 111–151; BP diastolic 75–95; PULSE 70–112; RESP 17–23; TEMP 36.3–36.8; O2SAT 94–98
[2023-04-06] MEDS: ACETAMINOPHEN 325 MG TABLET 650 MG PO ×2 (02:23→20:32)
[2023-04-06 03:55] LABS: Basophils Absolute Auto 0.1 K/mm3 (0.0-0.1); Basophils Percent Auto 0.5 % (0.2-1.2); Eosinophils Absolute Auto 0.2 K/mm3 (0-0.3); Eosinophils Percent Auto 2.5 % (0-4.4); Hematocrit 40.3 % (42.0-52.0); Hemoglobin 13.7 g/dL (14.0-18.0); Immature Granulocyte Absolute 0.04 K/mm3 (0.00-0.031); Immature Granulocyte Percent A 0.4 % (0-0.5); Lymphocytes Absolute Auto 1.82 K/mm3 (0.9-3.2); Lymphocytes Percent Auto 19.5 % (18.3-44.2); Mean Corpuscular Hemoglobin 29.3 pg (26-34); Mean Corpuscular Volume 86.3 fl (80-100); Mean Platelet Volume 8.9 fl (7.4-10.4); Monocytes Absolute Auto 0.9 K/mm3 (0.1-0.6); Monocytes Percent Auto 9.7 % (2.6-8.5); Neutrophils Absolute Auto 6.3 K/mm3 (1.3-6.7); Neutrophils Percent Auto 67.4 % (45.5-73.1); Platelet Count Result 327 k/mm3 (150-375); Red Blood Count 4.67 M/mm3 (4.6-6.20); Red Cell Distribution Width 13.3 % (11.5-14.5); White Blood Count 9.3 K/mm3 (4.5-10.0)
[2023-04-06 04:06] LABS: Anion Gap 7 mmol/L (8-16); Blood Urea Nitrogen 8 mg/dL (9-20); Calcium 8.6 mg/dL (8.4-10.2); Carbon Dioxide 26 mmol/L (22-30); Chloride 93 mmol/L (98-107); Estimated CRCL calculation 76 ml/min; Estimated Glomerular Filt Rate > 60; Glucose 107 mg/dL (65-110); Potassium 4.2 mmol/L (3.4-5.0); Sodium 126 mmol/L (137-145)
[2023-04-06 04:42] LABS: Cortisol Random 6.48 ug/dL
[2023-04-06] MEDS: FLUTICASONE/SALMETEROL 115-21 MCG INHALER 1 PUFF 2 PUFF INHALATION ×2 (08:10→20:50)
[2023-04-06] MEDS: OSELTAMIVIR PHOSPHATE 75 MG CAPSULE PO ×2 (09:04→20:33)
[2023-04-06] MEDS: FLUTICASONE PROPIONATE 0.05% NA SPR 16 GM BTL (*BKC) 1 SPRAY NASAL (09:04)
[2023-04-06] MEDS: ENOXAPARIN 40 MG/0.4 ML SYRINGE SUB-Q (09:04)
[2023-04-06] MEDS: ASPIRIN 81 MG CHEWABLE TABLET PO (09:04)
--- NOTE | 2023-04-06 13:30 | PM.PNNEP ---
Progress Note: A&P Assessment and Plan (1) Hyponatremia: Code(s): E87.1 - Hypo-osmolality and hyponatremia Status: Acute Assessment and Plan: overcorrection noted on admission: sodium on admission 119mmol/L sodium 12 hours later 129mmol/L received 3% saline on admission reportedly due to confusion s/p D5W IVFs and DDAVP which resolved overcorrection unclear what baseline sodium is...was 128mmol on 04/01/23 prior to him leaving AMA (but did receive normal saline and 3% saline with an admission sodium of 122) evaluation to date: TSH elevated but FT4 and T3 okay cortisol pending SPEP/UPEP and serum/urine osmo pending CT of chest with acute versus acute on chronic small airways infectious process suspicion falls on excessive free water intake as etiology given unclear psych history, outpatient use of SSRI therapy is also possible attempt get records [facility] regarding previous sodium levels... continue fluid restriction head CT okay follow trend of repeat sodium levels Will continue to follow. Subjective Date/time seen: 04/06/23 13:30 Interval history: Follow-up for hyponatremia (acute versus chronic versus acute on chronic?) Overall, seems to be feeling reasonably well today; sodium level is improving if not stable at this time; remains asymptomatic at this time; no issues overnight or earlier this morning. Exam Narrative: General: WD/WN male in NAD Heart: normal S1 and S2; no rub Lungs: clear to auscultation Abdomen: soft, nontender, nondistended, positive bowel sounds Extremities: no cyanosis or clubbing; no edema Skin: warm and dry Objective Data Vital Signs Vital Signs: Vital Signs Temp Pulse Resp BP Pulse Ox O2 Del Method 04/06/23 12:00 98.0 F 112 H 20 151/95 H 98 04/06/23 08:00 104 H 23 H 94 Room Air 04/06/23 08:00 97.4 F L 96 22 H 124/90 98 04/06/23 04:00 98.0 F 73 20 133/83 95 04/06/23 04:00 73 04/06/23 00:00 97.9 F 71 20 125/75 94 04/06/23 00:00 71 04/05/23 20:00 Room Air 04/05/23 20:00 98.1 F 79 19 159/95 H 96 04/05/23 20:00 79 04/05/23 20:14 95 19 04/05/23 20:09 84 19 Intake/Output Intake/Output: Intake & Output 04/03/23 04/04/23 04/05/23 04/06/23 23:59 23:59 23:59 23:59 Intake Total 1140 1500 2310 Output Total 2750 1300 2500 Balance -1610 200 -190 Meds/Results Medications: Active Medications Generic Name Dose Route Start Last Admin Trade Name Freq PRN Reason Stop Dose Admin Acetaminophen 650 mg 04/04/23 15:24 04/06/23 02:23 Acetaminophen 325 Mg Tablet PO 650 mg Q4H PRN Administration Mild Pain (1-3) or Fever Al Hydrox/Mg Hydrox/Simethicone 30 ml 04/04/23 15:24 Mag Hydrox/Al Hydrox/Simeth 30 Ml Udc PO QID PRN Dyspepsia Albuterol 2.5 mg 04/04/23 15:30 04/04/23 16:40 Albuterol Sulfate Neb 2.5 Mg/3 Ml Inh INHALATION 2.5 mg Q3-4H PRN Administration bronchospasm Aspirin 81 mg 04/05/23 09:00 04/06/23 09:04 Aspirin 81 Mg Chewable Tablet PO 81 mg DAILY RIZWAN Administration Enoxaparin Sodium 40 mg 04/05/23 09:00 04/06/23 09:04 Enoxaparin 40 Mg/0.4 Ml Syringe SUB-Q 40 mg DAILY RIZWAN Administration Fluticasone Propionate 1 spray 04/05/23 09:00 04/06/23 09:04 Fluticasone Propionate 0.05% Na Spr 16 Gm Btl (*Bkc) NASAL 1 spray DAILY RIZWAN Administration Guaifenesin/Dextromethorphan 10 ml 04/04/23 15:30 Guaifenesin/Dextromethorphan 10 Ml Udc PO Q4-6H PRN Cough Lidocaine 1 patch 04/04/23 12:19 04/05/23 18:57 Lidocaine 5% Patch TRANSDERM Not Given DAILY RIZWAN Melatonin 3 mg 04/04/23 15:30 04/05/23 20:40 Melatonin 3 Mg Tablet PO 3 mg HS PRN Administration Insomnia Metoprolol Tartrate 25 mg 04/06/23 18:00 02/28/24 18:20 Metoprolol Tartrate 25 Mg Tablet PO 25 mg Q12H RIZWAN Administration Oseltamivir Diane
--- NOTE | 2023-04-06 17:24 | PC.NURSE ---
This patient, Rui Estrada, was transferred to [facility] on 04/06/23 at 1725. Personal belongings sent with patient. Report given to STELLA Strong. Appropriate documentation sent with patient.
--- NOTE | 2023-04-06 17:37 | PC.NURSE ---
pt transferred to room 250 via wheelchair, oriented to new room and environment, reviewed plan of care
--- NOTE | 2023-04-06 17:50 | PM.IMPN ---
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; F54 - Psychological and behavioral factors associated with disorders or diseases classified elsewhere Status: Acute Plan Admit patient to IMU under full in status Continues cardiopulmonary tele monitoring Patient received 100 mL of 3% normal saline in the ER ordered as per ED physician His sodium level has improved from 119-129 since admission Patient seen by slag worker today who ordered small doses of D5 W and DDAVP to avoid acute lowering of sodium with complications His sodium level stable between 122 and 128 Patient likely has psychogenic polydipsia causing him to drink high volumes of fluids causing hyponatremia CT scan head ordered as per hyponatremia workup which ruled out any intracranial abnormalities Advised patient to drink maximum 8 glasses/2000 mL water on a daily basis Patient was diagnosed with influenza A during his recent admission admission on 03/31/2023 hence 75 mg p.o. b.i.d. ordered for 10 doses Strict I&Os His blood pressure and heart rate are borderline high hence low-dose metoprolol 25 mg p.o. b.i.d. added Monitor vital signs closely Patient had elevated TSH at 11.5 Free T3 and free T4 levels ordered which are within normal limits Please release medical records from PCP/psychiatrist regarding his psychiatric history Patient downgraded from IMU to medical floor as per Nephrology Follow-up closely with Nephrology regarding further recommendations for his hyponatremia DC planning home in a.m. if cleared by Nephrology ? Patient seen and examined at bedside during my morning rounds ? Collaborated with patient's nurse at the bedside in detail and addressed all concerns ? Labs, electrolytes, radiology, investigations and test results reviewed ? Consult/Nursing/Ancilliary notes on the chart reviewed and appreciated ? Spoke with patient/family at the bedside and answered all the questions that they had Repeat labs in a.m. Electrolyte replacement as per protocol. Patient will be monitored very closely on the floor. Further recommendations as per the hospital course. Personal history of noncompliance with medical treatment and regimen: STRICTLY advised patient to be compliant with meds and medical recommendations. Advised patient to get established with a PCP upon discharge, take care of meds, diet and bring patient's life back on track. Spoke with care coordination to help patient's secure follow-up appointment with [facility] Time Spent With Patient Time with patient: 15 - 25 minutes Subjective Date/time seen: 04/06/23 17:50 Interval history: Patient feeling better today. Sodium level has improved. His heart rate remains around 100. Downgraded by Nephrology to go to regular floor. Head CT scan ordered by Nephrology for hyponatremia work up. Review of Systems Review of Systems: 14 systems were reviewed with pertinent positives and negatives per HPI. Except as documented in the HPI/progress notes, all other systems were reviewed and are negative. All systems reviewed & are unremarkable except as noted in HPI and below Exam Narrative: PHYSICAL EXAMINATION: Vital signs: Please see the chart General physical exam: Patient lying in bed feeling weak tired and fatigued, pleasant and cooperative with exam Head/eyes: Atraumatic, EOMI, PERRLA
[2023-04-06] MEDS: METOPROLOL TARTRATE 25 MG TABLET PO (18:20)
[2023-04-07] VITALS (7 sets, daily range): BP systolic 111–115; BP diastolic 68–80; PULSE 74–95; RESP 16–17; TEMP 36.8–37; O2SAT 96–98
[2023-04-07] MEDS: METOPROLOL TARTRATE 25 MG TABLET PO (05:30)
[2023-04-07 06:09] LABS: Basophils Absolute Auto 0.1 K/mm3 (0.0-0.1); Basophils Percent Auto 0.4 % (0.2-1.2); Eosinophils Absolute Auto 0.4 K/mm3 (0-0.3); Eosinophils Percent Auto 3.1 % (0-4.4); Hematocrit 44.4 % (42.0-52.0); Hemoglobin 14.7 g/dL (14.0-18.0); Immature Granulocyte Absolute 0.07 K/mm3 (0.00-0.031); Immature Granulocyte Percent A 0.6 % (0-0.5); Lymphocytes Absolute Auto 2.06 K/mm3 (0.9-3.2); Lymphocytes Percent Auto 17.9 % (18.3-44.2); Mean Corpuscular HGB Conc 33.1 g/dl (32-36); Mean Corpuscular Hemoglobin 29.2 pg (26-34); Mean Corpuscular Volume 88.1 fl (80-100); Mean Platelet Volume 8.8 fl (7.4-10.4); Monocytes Absolute Auto 0.9 K/mm3 (0.1-0.6); Monocytes Percent Auto 8.2 % (2.6-8.5); Neutrophils Percent Auto 69.8 % (45.5-73.1); Platelet Count Result 447 k/mm3 (150-375); Red Blood Count 5.04 M/mm3 (4.6-6.20); Red Cell Distribution Width 13.5 % (11.5-14.5); White Blood Count 11.5 K/mm3 (4.5-10.0)
[2023-04-07 06:45] LABS: Anion Gap 5 mmol/L (8-16); Blood Urea Nitrogen 14 mg/dL (9-20); Carbon Dioxide 28 mmol/L (22-30); Chloride 93 mmol/L (98-107); Estimated CRCL calculation 71 ml/min; Estimated Glomerular Filt Rate > 60; Glucose 99 mg/dL (65-110); Potassium 4.4 mmol/L (3.4-5.0); Sodium 126 mmol/L (137-145)
[2023-04-07] MEDS: FLUTICASONE/SALMETEROL 115-21 MCG INHALER 1 PUFF 2 PUFF INHALATION (07:47)
[2023-04-07] MEDS: FLUTICASONE PROPIONATE 0.05% NA SPR 16 GM BTL (*BKC) 1 SPRAY NASAL (08:58)
[2023-04-07] MEDS: ENOXAPARIN 40 MG/0.4 ML SYRINGE SUB-Q (08:58)
[2023-04-07] MEDS: ASPIRIN 81 MG CHEWABLE TABLET PO (08:58)
[2023-04-07] MEDS: SODIUM CHLORIDE 500 MG TABLET PO (08:58)
[2023-04-07] MEDS: OSELTAMIVIR PHOSPHATE 75 MG CAPSULE PO (08:58)
[2023-04-07] MEDS: ACETAMINOPHEN 325 MG TABLET 650 MG PO (09:01)
--- NOTE | 2023-04-07 11:31 | PM.DS ---
DS: Admitting Diagnosis Discharge Date 04/07/2023: Admitting Diagnosis (1) COPD (chronic obstructive pulmonary disease): ?Code(s): J44.9 - Chronic obstructive pulmonary disease, unspecified ?Status:?Acute (2) Normocytic anemia: ?Code(s): D64.9 - Anemia, unspecified ?Status:?Acute (3) Hyponatremia: ?Code(s): E87.1 - Hypo-osmolality and hyponatremia ?Status:?Acute (4) Hyperglycemia: ?Code(s): R73.9 - Hyperglycemia, unspecified ?Status:?Acute (5) Influenza A: ?Code(s): J10.1 - Influenza due to other identified influenza virus with other respiratory manifestations ?Status:?Acute (6) Psychogenic polydipsia: ?Code(s): R63.1 - Polydipsia; F54 - Psychological and behavioral factors associated with disorders or diseases classified elsewhere ?Status:?Acute DS: Discharge Diagnosis Discharge Diagnosis (1) Psychogenic polydipsia: Code(s): R63.1 - Polydipsia; F54 - Psychological and behavioral factors associated with disorders or diseases classified elsewhere Status: Acute (2) COPD (chronic obstructive pulmonary disease): Code(s): J44.9 - Chronic obstructive pulmonary disease, unspecified Status: Acute (3) Normocytic anemia: Code(s): D64.9 - Anemia, unspecified Status: Acute (4) Hyponatremia: Code(s): E87.1 - Hypo-osmolality and hyponatremia Status: Acute (5) Hyperglycemia: Code(s): R73.9 - Hyperglycemia, unspecified Status: Acute (6) Influenza A: Code(s): J10.1 - Influenza due to other identified influenza virus with other respiratory manifestations Status: Acute (7) Personal history of noncompliance with medical treatment and regimen: Code(s): Z91.199 - Patient's noncompliance with other medical treatment and regimen due to unspecified reason Status: Acute DS: Summary Hospital Course Reason for hospitalization: Patient came back for evaluation of bilateral flank pain Hospital Course: H&P: HPI History of Present Illness Date/Time: 04/04/23? 15:07 Chief Complaint: Patient came back for evaluation of bilateral flank pain Narrative: He is an unfortunate male with an unknown psychiatric illness as per the patient, who was admitted to our hospital 3 days ago with hyponatremia.? He received treatment and left against medical advice.? He came back again complaining to the ER physician ?I think my kidneys are going bad .? He admits to drinking a lot of water since leaving AMA from the hospital.? He was complaining of bilateral flank pains, as well as feeling weak tired and fatigued.? Workup was done which showed worsening hypernatremia at 119.? No evidence of renal stones on CT scan abdomen. Patient was given 100 mL of 3% normal saline and was admitted in IMU for close follow-up and evaluation by Nephrology.? His follow-up sodium level today is 129.? He is being admitted for close follow-up and management as per Nephrology. HOSPITAL COURSE ... Date of Admission - 04/06/2023: Plan Admit patient to IMU under full in status Continues cardiopulmonary tele monitoring Patient received 100 mL of 3% normal saline in the ER ordered as per ED physician His sodium level has improved from 119-129 since admission Patient seen by spice miller today who ordered small doses of D5 W and DDAVP to avoid acute lowering of sodium with complications His sodium level stable between 122 and 128 Patient likely has psychogenic polydipsia causing him to drink high volumes of fluids causing hyponatremia CT scan head ordered as per hyponatremia workup which ruled out any intracranial abnormalities Advised patient to drink maximum 8 glasses/2000 mL water on a daily basis Patient was diagnosed with influenza A during his recent admission admission on 03/31/2023 hence 75 mg p.o. b.i.d. ordered for 10 doses Strict I&Os His blood pressure and heart rate are borderline high hence low-dose metoprolol 25 mg p.o. b.i.d. added Monitor
[2023-04-07 13:15] LABS: Lambda Light Chain 36.9 mg/L (5.7-26.3)
--- NOTE | 2023-04-07 16:11 | PC.NURSE ---
I reviewed the License Pending RN's documentation and agree with the findings.
[2023-04-07 16:16] LABS: Albumin 3.5 g/dL (3.8-4.8); Alpha 1 Globulin 0.5 g/dL (0.2-0.3); Beta 1 Globulin 0.5 g/dL (0.4-0.6); Protein, Total 6.9 g/dL (6.1-8.1)
[2023-04-10 15:14] LABS: Creatinine, Random Urine 134 mg/dL (20-320); Total Protein/Creatinine Ratio 224 mg/g creat (25-148)
== END 2023-04-07 13:10 | disposition home or self-care (01) | DRG 641 ==
LOC: ANHED 04-04 03:51 → ANHICU 04-04 05:16 → ANH2MED 04-06 17:29
PROVIDERS: Internal Medicine Nephrology; Admitting Provider Internal Medicine Infectious Disease; Emergency Provider Emergency Medicine; Visit Provider Family Medicine
DX: E87.1 Hypo-osmolality and hyponatremia (principal); R63.1 Polydipsia; F54 Psychological and behavioral factors associated with disorders or diseases classified elsewhere; D64.9 Anemia, unspecified; J44.9 Chronic obstructive pulmonary disease, unspecified; J10.1 Influenza due to other identified influenza virus with other respiratory manifestations; Z87.891 Personal history of nicotine dependence; Z91.199 Patient's noncompliance with other medical treatment and regimen due to unspecified reason
CPT/HCPCS: 36415; 70450; 74177; 80048; 80053; 80307; 81001; 81050; 82533; 82570; 83690; 83735; 83883; 84100; 84155; 84156; 84165; 84166; 84295; 84300; 84439; 84443; 84480; 84540; 85025; 86334; 86335; 93005; 94640; 99285; A9270; J1650; J2597; J7060; J7131; Q9967